=== PATIENT | male | born 1970 ===

== ENCOUNTER 2020-01-17 21:38 | Emergency (ER) | payer OTHER ==
[2020-01-18] MEDS ORDERED: SODIUM CHLORIDE 0.9% 1000 ML 1,000 ML IV ONE (02:51)
[2020-01-18] MEDS ORDERED: MECLIZINE 25 MG TAB PO ONE (02:51)
[2020-01-18 03:17] LABS: Basophils % (Auto) 0.4 % (0.0-1.8); Eosinophils % (Auto) 0.3 % (0.0-4.3); Hematocrit 43.7 % (35.5-45.6); Hemoglobin 15.2 gm/dl (11.8-15.2); Lymphocytes # (Auto) 1.2 K/mm3 (1.2-5.4); Lymphocytes % (Auto) 21.2 % (13.4-35.0); Mean Corpuscular HGB Conc 35 % (32-34); Mean Corpuscular Volume 88 fl (84-94); Monocytes # (Auto) 0.3 K/mm3 (0.0-0.8); Monocytes % (Auto) 5.1 % (0.0-7.3); Platelet Count 267 K/mm3 (140-440); Red Blood Count 4.94 M/mm3 (3.65-5.03); Red Cell Distribution Width 12.7 % (13.2-15.2)
--- NOTE | 2020-01-18 03:23 | XRay Report ---
CHEST 1 VIEW 01/18/2020 3:07 AM INDICATION / CLINICAL INFORMATION: syncope, dizziness. COMPARISON: None available. FINDINGS: SUPPORT DEVICES: None. HEART / MEDIASTINUM: No significant abnormality. LUNGS / PLEURA: No significant pulmonary or pleural abnormality. No pneumothorax. ADDITIONAL FINDINGS: No significant additional findings. IMPRESSION: 1. No acute findings. Signer Name: Steven Duran MD Signed: 01/18/2020 3:18 AM Workstation Name: [id number]
--- NOTE | 2020-01-18 04:00 | Cat Scan Report ---
CT head/brain wo con INDICATION: dizziness, syncope. TECHNIQUE: Routine CT head without contrast. All CT scans at this location are performed using CT dos e reduction for ALARA by means of automated exposure control. COMPARISON: None. FINDINGS: BRAIN / INTRACRANIAL CONTENTS: No acute hemorrhage, mass effect, midline shift, or hydrocephalus. No appreciable acute large territorial or lacunar infarct. No chronic infarct or focal atrophy. Normal b rain volume and ventricular/sulcal size for age. ORBITS: No significant abnormality of visualized orbits. SINUSES / MASTOIDS: No significant abnormality of visualized sinuses and mastoid air cells. ADDITIONAL FINDINGS: None. IMPRESSION: 1. No acute intracranial abnormality. Signer Name: Steven Duran MD Signed: 01/18/2020 3:56 AM Workstation Name: [id number]
[2020-01-18 04:01] LABS: Alanine Aminotransferase 35 units/L (7-56); Albumin 4.7 g/dL (3.9-5); BUN/Creatinine Ratio 18; Blood Urea Nitrogen 14 mg/dL (9-20); Calcium 9.3 mg/dL (8.4-10.2); Hemolysis Index 9
--- NOTE | 2020-01-18 05:38 | Emergency Department Report ---
ED Dizziness HPI - General Chief Complaint: Dizziness Stated Complaint: CHILLS Source: patient Mode of arrival: Ambulatory Limitations: No Limitations - History of Present Illness Initial Comments: Patient is a 49-year-old male with no past medical history presents to the ED with complaint of acute onset persistent dizziness, lightheadedness and vertigo-like symptoms at home and a near syncopal episode about 8 hours ago. Patient states that he has never felt these symptoms before and that this was the first time he felt the symptoms. Patient states that this was a single episode dizziness while at home. Patient states that the symptoms resolved as soon as these happened. Patient denies nausea, vomiting, headache, chest pain, shortness of breath, ear pain, nasal and sinus congestion, sore throat, fever, chills, cough, traumatic injury, change in vision or numbness and tingling or weakness of upper and lower extremities bilaterally. MD Complaint: dizziness, lightheadedness, near syncope -: Sudden, hour(s) (8) Timing: sudden onset Description: sense of movement, "room spinning", lightheadedness History of Same: No History of Trauma: No Severity: mild Improves With: nothing Worsens With: movement Associated Symptoms: denies other symptoms. denies: ataxia, chest pain, confusion, cough, diaphoresis, fever/chills, loss of appetite, malaise, seizure, shortness of breath, syncope, weakness - Related Data Previous Rx's Medication Instructions Recorded Last Taken Type Meclizine HCl 25 mg PO Q8H PRN #30 tablet 01/18/20 Unknown Rx Allergies Allergy/AdvReac Type Severity Reaction Status Date / Time No Known Allergies Allergy Unverified 01/18/20 02:03 ED Review of Systems ROS: Stated complaint: CHILLS Other details as noted in HPI Constitutional: denies: chills, fever Eyes: denies: eye pain, eye discharge, vision change ENT: denies: ear pain, throat pain Respiratory: denies: cough, shortness of breath, SOB with exertion, wheezing Cardiovascular: syncope (dizziness). denies: chest pain, palpitations Endocrine: no symptoms reported Gastrointestinal: denies: abdominal pain, nausea, vomiting, diarrhea Genitourinary: denies: urgency, dysuria Musculoskeletal: denies: back pain, joint swelling, arthralgia Skin: denies: rash, lesions Neurological: vertigo. denies: headache, weakness, numbness, paresthesias, confusion Psychiatric: denies: anxiety, depression Hematological/Lymphatic: denies: easy bleeding, easy bruising ED Past Medical Hx - Past Medical History Previous Medical History?: No - Surgical History Past Surgical History?: No - Social History Smoking Status: Never Smoker Substance Use Type: None - Medications Home Medications: Home Medications Medication Instructions Recorded Confirmed Last Taken Type Meclizine HCl 25 mg PO Q8H PRN #30 tablet 01/18/20 Unknown Rx ED Physical Exam - General Limitations: No Limitations General appearance: alert, in no apparent distress - Head Head exam: Present: atraumatic, normocephalic, normal inspection - Eye Eye exam: Present: normal appearance, PERRL, EOMI Pupils: Present: normal accommodation - ENT ENT exam: Present: normal exam, normal orophraynx, mucous membranes moist, TM's normal bilaterally, normal external ear exam - Neck Neck exam: Present: normal inspection, full ROM - Respiratory Respiratory exam: Present: normal lung sounds bilaterally. Absent: respiratory distress, wheezes, rales, stridor, chest wall tenderness, accessory muscle use, prolonged expiratory - Cardiovascular Cardiovascular Exam: Present: regular rate, normal rhythm, normal heart sounds. Absent: systolic murmur, diastolic murmur, rubs, gallop - GI/Abdominal GI/Abdominal exam: Present: soft, normal bowel sounds. Absent: distended, guarding, hyperactive bowel sounds, hypoactive bowel sounds - Extremities Exam Extremities exam: Present: normal inspection, full ROM, normal capillary refill - Back Exam Back exam: Present: normal inspection, full ROM. Absent: tenderness, CVA tenderness (R), CVA tenderness (L), muscle spasm, paraspinal tenderness - Neurological Exam Neurological exam: Present: alert, oriented X3, CN II-XII intact, normal gait, reflexes normal - Psychiatric Psychiatric exam: Present: normal affect, normal mood, anxious - Skin Skin exam: Present: warm, dry, intact, normal color. Absent: rash ED Course Vital Signs 01/18/20 01:52 Temperature 97.9 F Pulse Rate 79 Respiratory 18 Rate Blood Pressure 142/76 O2 Sat by Pulse 99 Oximetry ED Medical Decision Making - Lab Data Result diagrams: 01/18/20 02:36 01/18/20 02:56 - EKG Data EKG shows normal: sinus rhythm Rate: normal - EKG Data Interpretation: normal EKG 01/18/20 05:46 EKG shows no normal sinus rhythm with ventricular rate of [address] or T wave abnormalities. - Radiology Data Radiology results: report reviewed, image reviewed Findings [facility] [address] [place] [address] Cat Scan Report Signed Patient: JAIME VILLEGAS MR#: [id number] : 1970 Acct:[id number] Age/Sex: 49 / M ADM Date: 01/17/20 Loc: ED Attending Dr: Ordering Physician: COLLIN GARAY Date of Service: 01/18/20 Procedure(s): CT head/brain wo con Accession Number(s): [id number] cc: COLLIN GARAY CT head/brain wo con INDICATION: dizziness, syncope. TECHNIQUE: Routine CT head without contrast. All CT scans at this location are performed using CT dose reduction for ALARA by means of automated exposure control. COMPARISON: None. FINDINGS: BRAIN / INTRACRANIAL CONTENTS: No acute hemorrhage, mass effect, midline shift, or hydrocephalus. No appreciable acute large territorial or lacunar infarct. No chronic infarct or focal atrophy. Normal brain volume and ventricular/sulcal size for age. ORBITS: No significant abnormality of visualized orbits. SINUSES / MASTOIDS: No significant abnormality of visualized sinuses and mastoid air cells. ADDITIONAL FINDINGS: None. IMPRESSION: 1. No acute intracranial abnormality. Signer Name: Steven Duran MD Signed: 01/18/2020 3:56 AM Workstation Name: [id number] Transcribed By: WARREN Dictated By: Steven Duran MD Electronically Authenticated By: Steven Duran MD Signed Date/Time: 01/18/20355 DD/ 4 TD/TT: Findings [facility] [address] [place] [address] XRay Report Signed Patient: JAIME VILLEGAS MR#: [id number] : 1970 Acct:[id number] Age/Sex: 49 / M ADM Date: 01/17/20 Loc: ED Attending Dr: Ordering Physician: COLLIN GARAY Date of Service: 01/18/20 Procedure(s): XR chest 1V ap Accession Number(s): [id number] cc: COLLIN GARAY Fluoro Time In Minutes: CHEST 1 VIEW 01/18/2020 3:07 AM INDICATION / CLINICAL INFORMATION: syncope, dizziness. COMPARISON: None available. FINDINGS: SUPPORT DEVICES: None. HEART / MEDIASTINUM: No significant abnormality. LUNGS / PLEURA: No significant pulmonary or pleural abnormality. No pneumothorax. ADDITIONAL FINDINGS: No significant additional findings. IMPRESSION: 1. No acute findings. Signer Name: Steven Duran MD Signed: 01/18/2020 3:18 AM Workstation Name: [id number] Transcribed By: WARREN Dictated By: Steven Duran MD Electronically Authenticated By: Steven Duran MD Signed Date/Time: 01/18/20317 DD/ 7 TD/TT: - Medical Decision Making This is a 49-year-old male with no past medical history presents to the ED with complaint of acute onset persistent dizziness, lightheadedness and vertigo-like symptoms at home and a near syncopal episode about 8 hours ago. Patient states that he has never felt these symptoms before and that this was the first time he felt the symptoms. Patient states that this was a single episode dizziness while at home. Patient states that the symptoms resolved as soon as these happened. In the ED, patient is alert and oriented x3 and is not in distress. The EKG shows normal sinus rhythm with a ventricular rate of [address] or T wave abnormalities. The head CT scan without contrast showed no acute intracranial abnormalities or hemorrhage. Chest x-ray shows no acute cardiopulmonary abnormalities or pneumonitis. Patient was treated in the ED with meclizine, also received normal saline 1 L IV bolus x1. On reevaluation, patient felt better and was discharged home on medications based on the history and physical exam findings. Patient was discharged home and advised to follow- up with his primary care physician in 5 to 7 days for reevaluation or return to the ED immediately if symptoms get worse. - Differential Diagnosis Dizziness, lightheadedness; Vertigo; BPPV Critical care attestation.: If time is entered above; I have spent that time in minutes in the direct care of this critically ill patient, excluding procedure time. ED Disposition Clinical Impression: Dizziness and giddiness, Syncope and collapse Benign paroxysmal positional vertigo Qualifiers: Laterality: unspecified laterality Qualified Code(s): H81.10 - Benign paroxysmal vertigo, unspecified ear Disposition: TO HOME OR SELFCARE Is pt being admited?: No Does the pt Need Aspirin: No Condition: Stable Instructions: Syncope (ED), Vertigo, [id number], Syncope, [id number], Benign Positional Vertigo, Dizziness, [id number] Additional Instructions: Todos los resultados de las pruebas de laboratorio son normales. La tomografa computarizada de la roddy sin contraste no mostr alteraciones intracraneales agudas ni hemorragia. La radiografa de trax no muestra ninguna anomala cardiopulmonar aguda ni neumonitis. Por lo tanto, tome la medicacin con alimentos, kleber muchos lquidos y jann un seguimiento con bravo mdico de atencin primaria en 5 a 7 null para mojgan reevaluacin o regrese al servicio de urgencias de inmediato si los sntomas empeoran. Prescriptions: Meclizine HCl 25 mg PO Q8H PRN #30 tablet PRN Reason: Vertigo Referrals: [facility] [Provider Group] - 3-5 Days Time of Disposition: 05:40 Print Language: MACEDONIAN
[2020-01-18 07:07] VITALS: BP 137/75
== END 2020-01-18 06:27 | disposition home or self-care (01) ==
LOC: ED 21:38
DX: R55 Syncope and collapse (principal); H81.10 Benign paroxysmal vertigo, unspecified ear
CPT/HCPCS: 36415; 70450; 71045; 80053; 83880; 84484; 85025; 93005; 96360; 99284; J7030